=== PATIENT | male | born 1965 | race Caucasian/White ===

== ENCOUNTER 2016-09-27 20:37 | Emergency (ER) | payer SELFPAY ==
[~2016-09-27] VITALS: Ht 170.2 cm; Wt 77.1 kg
[~2016-09-27 20:37] MED LIST: FAMO20TA5 PO
[2016-09-27 21:40] VITALS: BP 111/63
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
[2016-09-27] MEDS ORDERED: MORPHINE SULFATE 10 MG/ML VIAL. IM ONE (22:00)
== END 2016-09-27 22:12 | disposition home or self-care (01) ==
LOC: ER 21:20
DX: S00.83XA Contusion of other part of head, initial encounter (principal); R10.84 Generalized abdominal pain; G89.29 Other chronic pain; F43.10 Post-traumatic stress disorder, unspecified; I25.2 Old myocardial infarction; F11.20 Opioid dependence, uncomplicated; M19.90 Unspecified osteoarthritis, unspecified site; Z90.49 Acquired absence of other specified parts of digestive tract; Z86.19 Personal history of other infectious and parasitic diseases; Z98.890 Other specified postprocedural states; F17.200 Nicotine dependence, unspecified, uncomplicated; Z88.8 Allergy status to other drugs, medicaments and biological substances; Y08.89XA Assault by other specified means, initial encounter; Y93.89 Activity, other specified; Y99.8 Other external cause status; Y92.89 Other specified places as the place of occurrence of the external cause
CPT/HCPCS: 96372; 99283; J2270

== ENCOUNTER 2016-10-16 09:12 | Observation (INO) | payer SELFPAY ==
[~2016-10-16] VITALS: Ht 172.7 cm; Wt 69.9 kg
[2016-10-16] MEDS ORDERED: IPRATRPIUM/ALBUTEROL 0.5/2.5MG 3 ML NEBU. NEB ONE (09:30)
--- NOTE | 2016-10-16 09:54 | RAD ---
Chest, 2 views, 10/16/2016: History: Shortness of breath with palpitations The heart size is normal. A calcified granuloma is present in the right upper lobe. No pulmonary infiltrates are seen. There is no evidence of pleural fluid. Mild spurring is present in the spine. IMPRESSION: No acute cardiopulmonary abnormality is detected.
[2016-10-16 10:12] LABS: BASO # 0.1 x10^3/uL (0.0-0.2); BASO % 1 % (0-3); EOS % 2 % (0-3); HEMATOCRIT 44.6 % (39.0-53.0); HEMOGLOBIN 15.3 g/dL (13.0-17.5); LYMPH # 2.4 x10^3/uL (1.0-4.8); LYMPH % 26 % (24-48); MEAN CORPUSCULAR HEMOGLOBIN 30 pg (25-35); MEAN CORPUSCULAR HGB CONC 34 g/dL (31-37); MEAN CORPUSCULAR VOLUME 86 fL (79-100); MONO % 10 % (0-9); NEUT % 61 % (31-73); PLATELET COUNT 250 x10^3/uL (140-400); RED CELL DISTRIBUTION WIDTH 13.6 % (11.5-14.5); WHITE BLOOD COUNT 9.1 x10^3/uL (4.0-11.0)
--- NOTE | 2016-10-16 10:19 | EKG ---
[facility] [address] [place] [address] Test Date: 2016-10-16 Test Time: 10:16:19 Pat Name: PHILLIP HUMPHREYS Department: Room: Gender: M Certified Dialysis Technician: : 1965 Requested By: ALINE LOUISE Order Number: [id number] Reading MD: Measurements Intervals [place] Rate: 73 P: 29 NH: 132 QRS: 62 QRSD: 90 T: 54 QT: 420 QTc: 467 Interpretive Statements SINUS RHYTHM QRS(T) CONTOUR ABNORMALITY CONSIDER ANTEROSEPTAL MYOCARDIAL DAMAGE RI6.01 Unconfirmed report No previous ECG available for comparison
[2016-10-16 10:28] LABS: CREATININE 0.9 mg/dL (0.7-1.3); POTASSIUM 3.3 mmol/L (3.5-5.1)
[2016-10-16 10:33] LABS: ALBUMIN 4.2 g/dL (3.4-5.0); ALBUMIN/GLOBULIN RATIO 1.1 (1.0-1.7); TOTAL BILIRUBIN 0.9 mg/dL (0.2-1.0); TOTAL PROTEIN 8.2 g/dL (6.4-8.2)
[2016-10-16 10:44] LABS: CKMB INDEX 1.6 % (0-4); CKMB MASS 1.6 ng/mL (0.0-3.6)
[2016-10-16] MEDS ORDERED: LORAZEPAM 2 MG/ML VIAL IV ONE (11:15)
[2016-10-16] MEDS ORDERED: POTASSIUM CHLORIDE 20 MEQ TABLET.ER. PO ONE (13:45)
--- NOTE | 2016-10-16 14:07 | PHYS DOC ---
Past Medical History Past Medical History: Anxiety, Arthritis, COPD, Hepatitis, [place] Additional Past Medical Histor: chronic abdominal pain, PTSD Past Surgical History: Appendectomy, Tonsillectomy Additional Past Surgical Histo: UMBILICAL HERNIA Additional Information: 2 CIGS/DAY Alcohol Use: None Drug Use: Benzodiazepine, Methadone, Opiates Social History Narrative: "I'VE DONE EVERYTHING ON THE PLANET IN MY LIFE" Adult General Chief Complaint Chief Complaint: TREMORS HPI HPI Patient is a 50 year old male who presents with substernal chest pain. He states it was a sharp pain in his substernal area of his chest and did not radiate. He did state that he's off his methadone for the last month he's been trying different options for pain control/addiction control. He also states he has chronic abdominal pain. He states this pain his abdomen is no different than his normal pain. He also feels some shortness of breath and states he has COPD. He denies any diaphoresis or nausea associated with this pain. Review of Systems Review of Systems Constitutional: Denies fever or chills [] Eyes: Denies change in visual acuity, redness, or eye pain [] HENT: Denies nasal congestion or sore throat [] Respiratory: Denies cough or shortness of breath [] Cardiovascular: No additional information not addressed in HPI [] GI: Denies abdominal pain, nausea, vomiting, bloody stools or diarrhea [] : Denies dysuria or hematuria [] Musculoskeletal: Denies back pain or joint pain [] Integument: Denies rash or skin lesions [] Neurologic: Denies headache, focal weakness or sensory changes [] Endocrine: Denies polyuria or polydipsia [] Current Medications Current Medications Current Medications Medications (Trade) Dose Ordered Sig/[facility] Start Time Stop Time Status Last Admin Dose Admin Albuterol/ Ipratropium (Duoneb) 3 ml 1X ONCE 10/16/16 09:30 10/16/16 09:31 DC 10/16/16 09:56 3 ML Aspirin (Tiffanie Aspirin) 325 mg 1X ONCE 10/16/16 14:45 10/16/16 14:46 DC Lorazepam (Ativan) 1 mg 1X ONCE 10/16/16 11:15 10/16/16 11:16 DC 10/16/16 11:06 1 MG Ondansetron HCl (Zofran) 4 mg PRN Q8HRS PRN 10/16/16 14:45 10/17/16 14:44 Potassium Chloride (Klor-Con) 40 meq 1X ONCE 10/16/16 13:45 10/16/16 13:46 DC 10/16/16 14:22 40 MEQ Allergies Allergies Allergies Coded Allergies Type Severity Reaction Last Updated Verified diphenhydramine Allergy Intermediate 06/29/16 Yes ketorolac Allergy Intermediate 10/16/16 Yes Physical Exam Physical Exam Constitutional: Well developed, well nourished, no acute distress, non-toxic appearance. [] HENT: Normocephalic, atraumatic, bilateral external ears normal, oropharynx moist, no oral exudates, nose normal. [] Eyes: PERRLA, EOMI, conjunctiva normal, no discharge. [] Neck: Normal range of motion, no tenderness, supple, no stridor. [] Cardiovascular:Heart rate regular rhythm, no murmur [] Lungs & Thorax: Bilateral breath sounds clear to auscultation [] Abdomen: Bowel sounds normal, soft, no tenderness, no masses, no pulsatile masses. [] Skin: Warm, dry, no erythema, no rash. [] Back: No tenderness, no CVA tenderness. [] Extremities: No tenderness, no cyanosis, no clubbing, ROM intact, no edema. [] Neurologic: Alert and oriented X 3, normal motor function, normal sensory function, no focal deficits noted. [] Psychologic: Affect normal, judgement normal, mood normal. [] Current Patient Data Vital Signs Vital Signs Date Time Temp Pulse Resp B/P Pulse Ox O2 Delivery O2 Flow Rate FiO2 10/16/16 13:00 70 22 115/76 97 Room Air 10/16/16 09:28 98.4 98.4 Lab Values Laboratory Tests Test 10/16/16 09:51 White Blood Count 9.1x10^3/uL (4.0-11.0) Red Blood Count 5.20x10^6/uL (4.30-5.70) Hemoglobin 15.3g/dL (13.0-17.5) Hematocrit 44.6% (39.0-53.0) Mean Corpuscular Volume 86fL (79-100) Mean Corpuscular Hemoglobin 30pg (25-35) Mean Corpuscular Hemoglobin Concent 34g/dL (31-37) Red Cell Distribution Width 13.6% (11.5-14.5) Platelet Count 250x10^3/uL (140-400) Neutrophils (%) (Auto) 61% (31-73) Lymphocytes (%) (Auto) 26% (24-48) Monocytes (%) (Auto) 10% (0-9) H Eosinophils (%) (Auto) 2% (0-3) Basophils (%) (Auto) 1% (0-3) Neutrophils # (Auto) 5.6x10^3uL (1.8-7.7) Lymphocytes # (Auto) 2.4x10^3/uL (1.0-4.8) Monocytes # (Auto) 0.9x10^3/uL (0.0-1.1) Eosinophils # (Auto) 0.2x10^3/uL (0.0-0.7) Basophils # (Auto) 0.1x10^3/uL (0.0-0.2) Sodium Level 143mmol/L (136-145) Potassium Level 3.3mmol/L (3.5-5.1) L Chloride Level 104mmol/L (98-107) Carbon Dioxide Level 23mmol/L (21-32) Anion Gap 16 (6-14) H Blood Urea Nitrogen 6mg/dL (8-26) L Creatinine 0.9mg/dL (0.7-1.3) Estimated GFR (Cockcroft-Gault) 89.0 BUN/Creatinine Ratio 7 (6-20) Glucose Level 97mg/dL (70-99) Calcium Level 10.0mg/dL (8.5-10.1) Total Bilirubin 0.9mg/dL (0.2-1.0) Aspartate Amino Transferase (AST) 17U/L (15-37) Alanine Aminotransferase (ALT) 17U/L (16-63) Alkaline Phosphatase 61U/L (46-116) Creatine Kinase 100U/L (39-308) Creatine Kinase MB (Mass) 1.6ng/mL (0.0-3.6) Creatine Kinase MB Relative Index 1.6% (0-4) Troponin I Quantitative < 0.017ng/mL (0.000-0.055) BI-Yxk-S-Type Natriuretic Peptide 36pg/mL (0-124) Total Protein 8.2g/dL (6.4-8.2) Albumin 4.2g/dL (3.4-5.0) Albumin/Globulin Ratio 1.1 (1.0-1.7) Lipase 243U/L (73-393) Laboratory Tests 10/16/16 09:51 Laboratory Tests 10/16/16 09:51 EKG EKG EKG shows normal sinus rhythm with rate [address] elevations or T- wave inversions, normal axis, as interpreted by me. Radiology/Procedures Radiology/Procedures [facility] [address] [place] [address] IMAGING REPORT Signed PATIENT: PHILLIP HUMPHREYS ACCOUNT: [id number] : 1965 LOCATION: ER AGE: 50 SEX: M EXAM STATUS: PRE ER ORD. PHYSICIAN: ALINE LOUISE MD REASON: soa PROCEDURE: CHEST PA & LATERAL Chest, 2 views, 10/16/2016: History: Shortness of breath with palpitations The heart size is normal. A calcified granuloma is present in the right upper lobe. No pulmonary infiltrates are seen. There is no evidence of pleural fluid. Mild spurring is present in the spine. IMPRESSION: No acute cardiopulmonary abnormality is detected. DICTATED and SIGNED BY: MAHI BESS MD DATE: 10/16/16 0950 CC: ALINE LOUISE MD; NO PCP ~ Impressions: Chest pain Drug abuse History of COPD Hypokalemia Course & Med Decision Making Course & Med Decision Making Pertinent Labs and Imaging studies reviewed. (See chart for details) She presented with chest pain that has now resolved. He received aspirin, no associated breathing treatment. The PAC team was called to assess his heroin abuse history, and current homelessness. He's being admitted for chest pain rule out. He is agreeable plans in stable condition this time. His potassium was replaced with oral medication. Dragon Disclaimer Dragon Disclaimer This electronic medical record was generated, in whole or in part, using a voice recognition dictation system. Departure Departure Impression: Primary Impression: Chest pain Disposition: ADMITTED INPATIENT Admitting Physician: Viky Herrera Condition: STABLE Referrals: UNKNOWN PCP NAME (PCP) ALINE LOUISE MD Oct 16, 2016 14:07
[2016-10-16] MEDS ORDERED: ASPIRIN 325 MG TABLET PO ONE (14:45)
[2016-10-16] MEDS ORDERED: ONDANSETRON PF 4 MG/2 ML VIAL. IV PRN ×2 (14:45→16:04)
--- NOTE | 2016-10-16 15:18 | PDOC2 ---
JOHN ADAMS [employer]RAVING PLATE [employer]KER 10/16/16 1518: CARDIAC CONSULT DATE OF CONSULT Date of Consult DATE: 10/16/16 TIME: 15:16 REASON FOR CONSULT Reason for Consult: Chest Pain REFERRING PHYSICIAN Referring Physician: Dr. Lewis SOURCE Source: Chart review, Patient HISTORY OF PRESENT ILLNESS HISTORY OF PRESENT ILLNESS This is a 50 yo male who presented with complaints of shortness of breath associated with chest pressure and diaphoresis. Patient reports symptoms began early this morning. Denies any dizziness, orthopnea, LE edema, or n/v. Symptoms resolved upon arrival to ED- "just went away". Patient additionally reports that sister witnessed him having seizure. Ran out of Xanax, Restoril, and oxycodone "without buffer" a couple of days ago. Apparently has prescription refills but not due for a couple more days, which is "why I'm here". Was on Methadone but reports he quit that on his own recently without being tapered off. Recent IV drug use; a couple of days ago. Uses marijuama daily and meth occasionally. Quit heroin approximately two years ago. Chronic abdominal pain. Has been staying in hotel for the last couple of months. Symptoms presently resolved. PAT team consulted. PAST MEDICAL HISTORY Cardiovascular: HTN Pulmonary: Asthma, COPD CENTRAL NERVOUS SYSTEM: Seizure GI: GERD Heme/Onc: No pertinent hx Hepatobiliary: Hep A/B/C (C) Psych: Anxiety, Depression Musculoskeletal: Osteoarthritis Rheumatologic: No pertinent hx Infectious disease: No pertinent hx ENT: No pertinent hx Renal/: No pertinent hx Endocrine: No pertinent hx Dermatology: No pertinent hx PAST SURGICAL HISTORY Past Surgical History: Appendectomy, Hernia Repair, Tonsillectomy FAMILY HISTORY Family History: Other (non-contributory ) SOCIAL HISTORY Smoke: <1 pack per day ALCOHOL: none Drugs: Marijuana, Crystal meth Lives: Homeless Domestic Violence: Neg CURRENT MEDICATIONS CURRENT MEDICATIONS Current Medications Medications (Trade) Dose Ordered Sig/Minna Route PRN Reason Start Time Stop Time Status Last Admin Dose Admin Albuterol/ Ipratropium (Duoneb) 3 ml 1X ONCE NEB 10/16/16 09:30 10/16/16 09:31 DC 10/16/16 09:56 Lorazepam (Ativan) 1 mg 1X ONCE IV 10/16/16 11:15 10/16/16 11:16 DC 10/16/16 11:06 Potassium Chloride (Klor-Con) 40 meq 1X ONCE PO 10/16/16 13:45 10/16/16 13:46 DC 10/16/16 14:22 ALLERGIES ALLERGIES: Coded Allergies: diphenhydramine (Verified Allergy, Intermediate, 06/29/16) ketorolac (Verified Allergy, Intermediate, 10/16/16) restless leg ROS Review of System 14 point ROS conducted with pertinent positives noted above in HPI. PHYSICAL EXAM General: Alert, Oriented X3, Cooperative, No acute distress HEENT: Atraumatic, Mucous membr. moist/pink Lungs: Clear to auscultation Heart: Regular rate, Normal S1, Normal S2, Other (2/6 systolic murmur ) Abdomen: Soft, Other (mild diffuse abdominal tenderness) Extremities: No edema, Normal pulses Skin: No breakdown, No significant lesion Neuro: Normal speech, Sensation intact Psych/Mental Status: Mental status NL, Mood NL MUSCULOSKELETAL: Osteoarthritic changes both hands VITALS VITALS Vital Signs Date Time Temp Pulse Resp B/P Pulse Ox O2 Delivery O2 Flow Rate FiO2 10/16/16 13:32 66 39 110/67 98 10/16/16 13:00 Room Air 10/16/16 09:28 98.4 98.4 LABS Lab: Laboratory Tests Test 10/16/16 09:51 White Blood Count 9.1x10^3/uL (4.0-11.0) Red Blood Count 5.20x10^6/uL (4.30-5.70) Hemoglobin 15.3g/dL (13.0-17.5) Hematocrit 44.6% (39.0-53.0) Mean Corpuscular Volume 86fL (79-100) Mean Corpuscular Hemoglobin 30pg (25-35) Mean Corpuscular Hemoglobin Concent 34g/dL (31-37) Red Cell Distribution Width 13.6% (11.5-14.5) Platelet Count 250x10^3/uL (140-400) Neutrophils (%) (Auto) 61% (31-73) Lymphocytes (%) (Auto) 26% (24-48) Monocytes (%) (Auto) 10% (0-9) Eosinophils (%) (Auto) 2% (0-3) Basophils (%) (Auto) 1% (0-3) Neutrophils # (Auto) 5.6x10^3uL (1.8-7.7) Lymphocytes # (Auto) 2.4x10^3/uL (1.0-4.8) Monocytes # (Auto) 0.9x10^3/uL (0.0-1.1) Eosinophils # (Auto) 0.2x10^3/uL (0.0-0.7) Basophils # (Auto) 0.1x10^3/uL (0.0-0.2) Sodium Level 143mmol/L (136-145) Potassium Level 3.3mmol/L (3.5-5.1) Chloride Level 104mmol/L (98-107) Carbon Dioxide Level 23mmol/L (21-32) Anion Gap 16 (6-14) Blood Urea Nitrogen 6mg/dL (8-26) Creatinine 0.9mg/dL (0.7-1.3) Estimated GFR (Cockcroft-Gault) 89.0 BUN/Creatinine Ratio 7 (6-20) Glucose Level 97mg/dL (70-99) Calcium Level 10.0mg/dL (8.5-10.1) Total Bilirubin 0.9mg/dL (0.2-1.0) Aspartate Amino Transf (AST/SGOT) 17U/L (15-37) Alanine Aminotransferase (ALT/SGPT) 17U/L (16-63) Alkaline Phosphatase 61U/L (46-116) Creatine Kinase 100U/L (39-308) Creatine Kinase MB (Mass) 1.6ng/mL (0.0-3.6) Creatine Kinase MB Relative Index 1.6% (0-4) Troponin I Quantitative < 0.017ng/mL (0.000-0.055) XI-Uak-O-Type Natriuretic Peptide 36pg/mL (0-124) Total Protein 8.2g/dL (6.4-8.2) Albumin 4.2g/dL (3.4-5.0) Albumin/Globulin Ratio 1.1 (1.0-1.7) Lipase 243U/L (73-393) ASSESSMENT/PLAN ASSESSMENT/PLAN 1. Chest pain, atypical initial trop negative- continue with series EKG without significant acute changes. Doubt ACS ASA. check lipids recent meth use. check UDS consider obtaining echo in am to r/o WMA 2. Hypokalemia replaced. Monitor lytes. check Mg 3. HTN controlled 4. Hepatitis C 5. chronic pain out of pain medications 6. polysubstance abuse admits to henry and meth use check UDS Problems: CRISSY FLOYD MD 10/16/162116: CARDIAC CONSULT ALLERGIES ALLERGIES: Coded Allergies: diphenhydramine (Verified Allergy, Intermediate, 06/29/16) ketorolac (Verified Allergy, Intermediate, 10/16/16) restless leg ASSESSMENT/PLAN ASSESSMENT/PLAN Patient seen and examined. Agree with CARPET INSPECTOR FINISHED's assessment and plan. CP atypical. DE ruled out. We will obtain 2D echo to rule out any wall motion abnormalities. K replaced. Continue current medical regimen. Thank you for your consultation. Problems: JOHN ADAMS APRN Oct 16, 2016 15:18 CRISSY FLOYD MD Oct 16, 2016 21:17
[2016-10-16 16:10] LABS: BARBITURATES NEG (NEG); BENZODIAZEPINES POS (NEG); CANNABINOIDS POS (NEG); COCAINE NEG (NEG); METHADONE NEG (NEG); OPIATES NEG (NEG); PHENCYCLIDINE NEG (NEG)
[2016-10-16 16:12] LABS: BILIRUBIN,URINE NEGATIVE (NEG); ETHANOL, URINE NEG (NEG); GLUCOSE,URINE NEGATIVE (NEG); NITRITE,URINE NEGATIVE (NEG); PROTEIN,URINE NEGATIVE (NEG-TRACE); UROBILINOGEN,URINE 0.2 mg/dL (0.2 mg/dL)
[2016-10-16] MEDS ORDERED: ACETAMINOPHEN 500 MG TABLET PO PRN (16:15)
[2016-10-16 16:25] LABS: BACTERIA,URINE 0 /HPF (0-FEW); RBC,URINE 0 /HPF (0-2); SQUAMOUS EPITHELIAL CELL,UR OCC /LPF; WBC,URINE OCC /HPF (0-4)
[2016-10-16 16:27] VITALS: BP 97/62
--- NOTE | 2016-10-16 16:29 | PDOC1 ---
History and Physical Date of Admission Date of Admission DATE: 10/16/16 TIME: 16:24 Identification/Chief Complaint Chief Complaint cp from anxiety Source Source: Caregiver, Chart review, Patient History of Present Illness History of Present Illness 50 y.o male, homeless, admitted for CP r.o ACS,. DOes have hx CO he claims yrs ago but no stents, cp midsternal, described as chest tightness, no diaphoresis, maybe SOA. He claims from anxiety, He used to take methadone 95 mgs a day and quit cold turkey a month ago bec he claims it was making him sick (unclear reasons0, BUt now tells me he requests xanax, oxycodone, klonopin and restoril,. EKg ok, labs ok, pt admitted for r/o ACS Past Medical History Cardiovascular: HTN Pulmonary: Asthma, COPD CENTRAL NERVOUS SYSTEM: Seizure GI: GERD Heme/Onc: No pertinent hx Hepatobiliary: Hep A/B/C (C) Psych: Anxiety, Depression Musculoskeletal: Osteoarthritis Rheumatologic: No pertinent hx Infectious disease: No pertinent hx ENT: No pertinent hx Renal/: No pertinent hx Endocrine: No pertinent hx Dermatology: No pertinent hx Past Surgical History Past Surgical History: Appendectomy, Hernia Repair, Tonsillectomy Family History Family History: Other (non-contributory ) Social History Smoke: <1 pack per day ALCOHOL: occassional Drugs: Marijuana, Crystal meth Current Problem List Problem List Problems Medical Problems: (1) Chest pain Status: Acute Problems: Current Medications Current Medications Current Medications Albuterol/ Ipratropium (Duoneb) 3 ml 1X ONCE NEB Last administered on 09:56; Start 10/16/16 at 09:30; Stop 10/16/16 at 09:31; Status DC Lorazepam (Ativan) 1 mg 1X ONCE IV Last administered on 10/16/16 11:06; Start 10/16/16 at 11:15; Stop 10/16/16 at 11:16; Status DC Potassium Chloride (Klor-Con) 40 meq 1X ONCE PO Last administered on 14:22; Start 10/16/16 at 13:45; Stop 10/16/16 at 13:46; Status DC Aspirin (Tiffanie Aspirin) 325 mg 1X ONCE PO Last administered on 10/16/16 15:28 ; Start 10/16/16 at 14:45; Stop 10/16/16 at 14:46; Status DC Ondansetron HCl (Zofran) 4 mg PRN Q8HRS PRN IV NAUSEA/VOMITING; Start 10/16/16 at 14:45; Stop 10/16/16 at 16:06; Status DC Ondansetron HCl (Zofran) 4 mg PRN Q6HRS PRN IV NAUSEA/VOMITING; Start 10/16/16 at 16:04 Acetaminophen (Tylenol) 500 mg PRN Q6HRS PRN PO MILD PAIN / TEMP; Start at 16:15 Famotidine (Pepcid) 20 mg BID PO ; Start 10/16/16 at 21:00 Active Scripts Active Famotidine 20 Mg Tablet 20 Mg PO BID Allergies Allergies: Coded Allergies: diphenhydramine (Verified Allergy, Intermediate, 06/29/16) ketorolac (Verified Allergy, Intermediate, 10/16/16) restless leg ROS General: No: Appetite, Chills, Fatigue, Malaise, Night Sweats, Other PSYCHOLOGICAL ROS: YES: Anxiety Eyes: No Blurry vision, No Decreased vision, No Double vision, No Dry eyes, No Excessive tearing, No Eye Pain, No Itchy Eyes, No Loss of vision, No Other, No Photophobia, No Scotomata, No Uses contacts, No Uses glasses HEENT: No: Epistaxis, Heacaches, Hearing change, Nasal congestion, Nasal discharge, Oral lesions, Other, Sinus pain, Sneezing, Snoring, Sore Throat, Tinnitus, Vertigo, Visual Changes, Vocal changes ALLERGY AND IMMUNOLOGY: No: Hives, Insect Bite Sensitivity, Itchy/Watery Eyes, Nasal Congestion, Other, Post Nasal Drip, Seasonal Allergies Hematological and Lymphatic: No: Bleeding Problems, Blood Clots, Blood Transfusions, Brusing, Night Sweats, Other, Pallor, Swollen Lymph Nodes ENDOCRINE: No: Breast Changes, Galactorrhea, Hair Pattern Changes, Hot Flashes , Malaise/lethargy, Mood Swings, Other, Palpitations, Polydipsia/polyuria, Skin Changes, Temperature Intolerance, Unexpected Weight Changes Breast: No New/Changing Breast Lumps, No Nipple changes, No Nipple discharge, No Other Respiratory: YES: Shortness of breath Cardiovascular: yes Chest Pain Gastrointestinal: No Abdominal Pain, No Constipation, No Diarrhea, No Hematochezia, No Melena, No Nausea, No Other, No Vomiting Genitourinary: No , No , No , No , No , No , No , No Discharge, No Dysuria, No Flank Pain, No Frequency, No Hematuria, No Incontinence, No Other, No Pain, No Retention, No Urgency Musculoskeletal: No Gait Disturbance, No Joint Pain, No Joint Stiffness, No Joint Swelling, No Muscle Pain, No Muscular Weakness, No Other, No Pain In:, No Swelling In: Neurological: No Behavorial Changes, No Bowel/Bladder ControlChng, No Confusion , No Dizziness, No Gait Disturbance, No Headaches, No Impaired Coord/balance, No Memory Loss, No Numbness/Tingling, No Other, No Seizures, No Speech Problems , No Tremors, No Visual Changes, No Weakness Skin: No Acne, No Dry Skin, No Eczema, No Hair Changes, No Lumps, No Mole Changes, No Mottling, No Nail Changes, No Other, No Pruritus, No Rash, No Skin Lesion Changes Physical Exam General: Alert, Oriented X3, Cooperative, No acute distress HEENT: Atraumatic, PERRLA, EOMI Lungs: Clear to auscultation, Normal air movement Heart: S1S2, RRR, no thrills, no rubs, no gallops, no murmurs Breasts: Normal, Rt breast nml w/o mass, Lt breast nml w/o mass, Nipples normal Abdomen: Normal bowel sounds, Soft, No tenderness, No hepatosplenomegaly, No masses Male Genitals Exam: normal genitalia, normal prostate PELVIC: Nml ext vulva Extremities: No clubbing, No cyanosis, No edema, Normal pulses, No tenderness/ swelling Skin: No rashes, No breakdown, No significant lesion Neuro: Normal gait, Normal speech, Strength at 5/5 X4 ext, Normal tone, Sensation intact, Cranial nerves 3-12 NL, Reflexes 2+ Psych/Mental Status: Mental status NL, Mood NL Vitals Vitals Vital Signs Date Time Temp Pulse Resp B/P Pulse Ox O2 Delivery O2 Flow Rate FiO2 10/16/16 13:32 66 39 110/67 98 10/16/16 13:00 Room Air 10/16/16 09:28 98.4 98.4 Labs Labs Laboratory Tests Test 10/16/16 09:51 10/16/16 15:45 White Blood Count 9.1x10^3/uL (4.0-11.0) Red Blood Count 5.20x10^6/uL (4.30-5.70) Hemoglobin 15.3g/dL (13.0-17.5) Hematocrit 44.6% (39.0-53.0) Mean Corpuscular Volume 86fL (79-100) Mean Corpuscular Hemoglobin 30pg (25-35) Mean Corpuscular Hemoglobin Concent 34g/dL (31-37) Red Cell Distribution Width 13.6% (11.5-14.5) Platelet Count 250x10^3/uL (140-400) Neutrophils (%) (Auto) 61% (31-73) Lymphocytes (%) (Auto) 26% (24-48) Monocytes (%) (Auto) 10% (0-9) Eosinophils (%) (Auto) 2% (0-3) Basophils (%) (Auto) 1% (0-3) Neutrophils # (Auto) 5.6x10^3uL (1.8-7.7) Lymphocytes # (Auto) 2.4x10^3/uL (1.0-4.8) Monocytes # (Auto) 0.9x10^3/uL (0.0-1.1) Eosinophils # (Auto) 0.2x10^3/uL (0.0-0.7) Basophils # (Auto) 0.1x10^3/uL (0.0-0.2) Sodium Level 143mmol/L (136-145) Potassium Level 3.3mmol/L (3.5-5.1) Chloride Level 104mmol/L (98-107) Carbon Dioxide Level 23mmol/L (21-32) Anion Gap 16 (6-14) Blood Urea Nitrogen 6mg/dL (8-26) Creatinine 0.9mg/dL (0.7-1.3) Estimated GFR (Cockcroft-Gault) 89.0 BUN/Creatinine Ratio 7 (6-20) Glucose Level 97mg/dL (70-99) Calcium Level 10.0mg/dL (8.5-10.1) Total Bilirubin 0.9mg/dL (0.2-1.0) Aspartate Amino Transf (AST/SGOT) 17U/L (15-37) Alanine Aminotransferase (ALT/SGPT) 17U/L (16-63) Alkaline Phosphatase 61U/L (46-116) Creatine Kinase 100U/L (39-308) Creatine Kinase MB (Mass) 1.6ng/mL (0.0-3.6) Creatine Kinase MB Relative Index 1.6% (0-4) Troponin I Quantitative < 0.017ng/mL (0.000-0.055) NK-Wqo-S-Type Natriuretic Peptide 36pg/mL (0-124) Total Protein 8.2g/dL (6.4-8.2) Albumin 4.2g/dL (3.4-5.0) Albumin/Globulin Ratio 1.1 (1.0-1.7) Lipase 243U/L (73-393) Urine Color Yellow Urine Clarity Clear Urine pH 6.0 Urine Specific [place] 1.010 Urine Protein Negativemg/dL (NEG-TRACE) Urine Glucose (UA) Negativemg/dL (NEG) Urine Ketones (Stick) 40mg/dL (NEG) Urine Blood Negative (NEG) Urine Nitrite Negative (NEG) Urine Bilirubin Negative (NEG) Urine Urobilinogen Dipstick 0.2mg/dL (0.2 mg/dL) Urine Leukocyte Esterase Negative (NEG) Urine RBC 0/HPF (0-2) Urine WBC Occ/HPF (0-4) Urine Squamous Epithelial Cells Occ/LPF Urine Bacteria 0/HPF (0-FEW) Urine Mucus Mod/LPF Urine Opiates Screen Neg (NEG) Urine Methadone Screen Neg (NEG) Urine Barbiturates Neg (NEG) Urine Phencyclidine Screen Neg (NEG) Urine Amphetamine/Methamphetamine Pos (NEG) Urine Benzodiazepines Screen Pos (NEG) Urine Cocaine Screen Neg (NEG) Urine Cannabinoids Screen Pos (NEG) Urine Ethyl Alcohol Neg (NEG) Laboratory Tests Test 10/16/16 09:51 10/16/16 15:45 White Blood Count 9.1x10^3/uL (4.0-11.0) Red Blood Count 5.20x10^6/uL (4.30-5.70) Hemoglobin 15.3g/dL (13.0-17.5) Hematocrit 44.6% (39.0-53.0) Mean Corpuscular Volume 86fL (79-100) Mean Corpuscular Hemoglobin 30pg (25-35) Mean Corpuscular Hemoglobin Concent 34g/dL (31-37) Red Cell Distribution Width 13.6% (11.5-14.5) Platelet Count 250x10^3/uL (140-400) Neutrophils (%) (Auto) 61% (31-73) Lymphocytes (%) (Auto) 26% (24-48) Monocytes (%) (Auto) 10% (0-9) Eosinophils (%) (Auto) 2% (0-3) Basophils (%) (Auto) 1% (0-3) Neutrophils # (Auto) 5.6x10^3uL (1.8-7.7) Lymphocytes # (Auto) 2.4x10^3/uL (1.0-4.8) Monocytes # (Auto) 0.9x10^3/uL (0.0-1.1) Eosinophils # (Auto) 0.2x10^3/uL (0.0-0.7) Basophils # (Auto) 0.1x10^3/uL (0.0-0.2) Sodium Level 143mmol/L (136-145) Potassium Level 3.3mmol/L (3.5-5.1) Chloride Level 104mmol/L (98-107) Carbon Dioxide Level 23mmol/L (21-32) Anion Gap 16 (6-14) Blood Urea Nitrogen 6mg/dL (8-26) Creatinine 0.9mg/dL (0.7-1.3) Estimated GFR (Cockcroft-Gault) 89.0 BUN/Creatinine Ratio 7 (6-20) Glucose Level 97mg/dL (70-99) Calcium Level 10.0mg/dL (8.5-10.1) Total Bilirubin 0.9mg/dL (0.2-1.0) Aspartate Amino Transf (AST/SGOT) 17U/L (15-37) Alanine Aminotransferase (ALT/SGPT) 17U/L (16-63) Alkaline Phosphatase 61U/L (46-116) Creatine Kinase 100U/L (39-308) Creatine Kinase MB (Mass) 1.6ng/mL (0.0-3.6) Creatine Kinase MB Relative Index 1.6% (0-4) Troponin I Quantitative < 0.017ng/mL (0.000-0.055) EF-Cuz-K-Type Natriuretic Peptide 36pg/mL (0-124) Total Protein 8.2g/dL (6.4-8.2) Albumin 4.2g/dL (3.4-5.0) Albumin/Globulin Ratio 1.1 (1.0-1.7) Lipase 243U/L (73-393) Urine Color Yellow Urine Clarity Clear Urine pH 6.0 Urine Specific [place] 1.010 Urine Protein Negativemg/dL (NEG-TRACE) Urine Glucose (UA) Negativemg/dL (NEG) Urine Ketones (Stick) 40mg/dL (NEG) Urine Blood Negative (NEG) Urine Nitrite Negative (NEG) Urine Bilirubin Negative (NEG) Urine Urobilinogen Dipstick 0.2mg/dL (0.2 mg/dL) Urine Leukocyte Esterase Negative (NEG) Urine RBC 0/HPF (0-2) Urine WBC Occ/HPF (0-4) Urine Squamous Epithelial Cells Occ/LPF Urine Bacteria 0/HPF (0-FEW) Urine Mucus Mod/LPF Urine Opiates Screen Neg (NEG) Urine Methadone Screen Neg (NEG) Urine Barbiturates Neg (NEG) Urine Phencyclidine Screen Neg (NEG) Urine Amphetamine/Methamphetamine Pos (NEG) Urine Benzodiazepines Screen Pos (NEG) Urine Cocaine Screen Neg (NEG) Urine Cannabinoids Screen Pos (NEG) Urine Ethyl Alcohol Neg (NEG) VTE Prophylaxis Ordered VTE Prophylaxis Devices: Yes VTE Pharmacological Prophylaxi: Yes Assessment/Plan Assessment/Plan 1. CP in an adults at rEST 2. Hx CO no stents 3. HOmeless 4. Hx methadone use in methadone clinic PLAN: Cycle [facility] cards [facility] methadone withdrawal Sw for homeless fdc OBS MARCUS MAYNARD MD Oct 16, 2016 16:29
[2016-10-16] MEDS ORDERED: NICOTINE 21MG PATCH. TD PRN (16:30)
[2016-10-16] MEDS ORDERED: TEMAZEPAM 7.5 MG CAPSULE PO PRN (16:30)
[2016-10-16] MEDS: OXYCODONE IR 5 MG TABLET. PO PRN (17:28)
[2016-10-16] MEDS: ALPRAZOLAM 1 MG TABLET PO PRN (17:28)
[2016-10-16 19:00] VITALS: BP 90/45
[2016-10-16] MEDS: CLONAZEPAM 1 MG TABLET PO PRN (20:54)
[2016-10-16] MEDS: FAMOTIDINE 20 MG TABLET. PO SCH (20:55)
[2016-10-16 23:09] VITALS: BP 93/52
[2016-10-17 03:00] VITALS: BP 81/46
[2016-10-17 07:07] VITALS: BP 97/59
[2016-10-17] MEDS: ALPRAZOLAM 1 MG TABLET PO PRN ×2 (08:31→16:40)
[2016-10-17] MEDS: FAMOTIDINE 20 MG TABLET. PO SCH (08:31)
[2016-10-17] MEDS: OXYCODONE IR 5 MG TABLET. PO PRN ×2 (08:32→14:50)
[2016-10-17 09:54] LABS: BASO # 0.1 x10^3/uL (0.0-0.2); BASO % 1 % (0-3); EOS % 4 % (0-3); HEMATOCRIT 43.4 % (39.0-53.0); HEMOGLOBIN 14.5 g/dL (13.0-17.5); LYMPH # 2.2 x10^3/uL (1.0-4.8); LYMPH % 27 % (24-48); MEAN CORPUSCULAR HEMOGLOBIN 29 pg (25-35); MEAN CORPUSCULAR HGB CONC 34 g/dL (31-37); MEAN CORPUSCULAR VOLUME 87 fL (79-100); MONO % 8 % (0-9); NEUT % 61 % (31-73); PLATELET COUNT 235 x10^3/uL (140-400); RED BLOOD COUNT 4.97 x10^6/uL (4.30-5.70); RED CELL DISTRIBUTION WIDTH 13.5 % (11.5-14.5); WHITE BLOOD COUNT 8.2 x10^3/uL (4.0-11.0)
[2016-10-17 10:19] LABS: CHOLESTEROL/HDL RATIO 2.5
[2016-10-17 10:56] VITALS: BP 95/56
[2016-10-17] MEDS ORDERED: ALPR1TAB2 PO (12:14)
[2016-10-17] MEDS ORDERED: TEMA7.5C2 PO (12:14)
[2016-10-17] MEDS ORDERED: OXYC10SY PO (12:14)
[2016-10-17] MEDS ORDERED: CLON1TAB PO (12:14)
--- NOTE | 2016-10-17 12:20 | PDOC3 ---
Discharge Summary Visit Information Date of Admission: Oct 16, 2016 Date of Discharge: Oct 17, 2016 Admitting Diagnosis Comment: 1. CP in an adults at rEST 2. Hx [place] no stents 3. HOmeless 4. Hx methadone use in methadone clinic Final Diagnosis Problems Medical Problems: (1) Chest pain Status: Acute Brief Hospital Course Allergies Allergies Coded Allergies Type Severity Reaction Last Updated Verified diphenhydramine Allergy Intermediate 06/29/16 Yes ketorolac Allergy Intermediate 10/16/16 Yes Vital Signs Vital Signs Date Time Temp Pulse Resp B/P Pulse Ox O2 Delivery O2 Flow Rate FiO2 10/17/16 10:56 97.9 62 18 95/56 97 Room Air 97.9 Lab Results Laboratory Tests Test 10/16/16 09:51 10/16/16 15:45 10/16/16 20:30 10/17/16 09:05 White Blood Count 9.1x10^3/uL (4.0-11.0) 8.2x10^3/uL (4.0-11.0) Red Blood Count 5.20x10^6/uL (4.30-5.70) 4.97x10^6/uL (4.30-5.70) Hemoglobin 15.3g/dL (13.0-17.5) 14.5g/dL (13.0-17.5) Hematocrit 44.6% (39.0-53.0) 43.4% (39.0-53.0) Mean Corpuscular Volume 86fL (79-100) 87fL (79-100) Mean Corpuscular Hemoglobin 30pg (25-35) 29pg (25-35) Mean Corpuscular Hemoglobin Concent 34g/dL (31-37) 34g/dL (31-37) Red Cell Distribution Width 13.6% (11.5-14.5) 13.5% (11.5-14.5) Platelet Count 250x10^3/uL (140-400) 235x10^3/uL (140-400) Neutrophils (%) (Auto) 61% (31-73) 61% (31-73) Lymphocytes (%) (Auto) 26% (24-48) 27% (24-48) Monocytes (%) (Auto) 10% (0-9) 8% (0-9) Eosinophils (%) (Auto) 2% (0-3) 4% (0-3) Basophils (%) (Auto) 1% (0-3) 1% (0-3) Neutrophils # (Auto) 5.6x10^3uL (1.8-7.7) 5.0x10^3uL (1.8-7.7) Lymphocytes # (Auto) 2.4x10^3/uL (1.0-4.8) 2.2x10^3/uL (1.0-4.8) Monocytes # (Auto) 0.9x10^3/uL (0.0-1.1) 0.6x10^3/uL (0.0-1.1) Eosinophils # (Auto) 0.2x10^3/uL (0.0-0.7) 0.3x10^3/uL (0.0-0.7) Basophils # (Auto) 0.1x10^3/uL (0.0-0.2) 0.1x10^3/uL (0.0-0.2) Sodium Level 143mmol/L (136-145) Potassium Level 3.3mmol/L (3.5-5.1) Chloride Level 104mmol/L (98-107) Carbon Dioxide Level 23mmol/L (21-32) Anion Gap 16 (6-14) Blood Urea Nitrogen 6mg/dL (8-26) Creatinine 0.9mg/dL (0.7-1.3) Estimated GFR (Cockcroft-Gault) 89.0 BUN/Creatinine Ratio 7 (6-20) Glucose Level 97mg/dL (70-99) Calcium Level 10.0mg/dL (8.5-10.1) Total Bilirubin 0.9mg/dL (0.2-1.0) Aspartate Amino Transf (AST/SGOT) 17U/L (15-37) Alanine Aminotransferase (ALT/SGPT) 17U/L (16-63) Alkaline Phosphatase 61U/L (46-116) Creatine Kinase 100U/L (39-308) Creatine Kinase MB (Mass) 1.6ng/mL (0.0-3.6) Creatine Kinase MB Relative Index 1.6% (0-4) Troponin I Quantitative < 0.017ng/mL (0.000-0.055) < 0.017ng/mL (0.000-0.055) < 0.017ng/mL (0.000-0.055) ZH-Suz-B-Type Natriuretic Peptide 36pg/mL (0-124) Total Protein 8.2g/dL (6.4-8.2) Albumin 4.2g/dL (3.4-5.0) Albumin/Globulin Ratio 1.1 (1.0-1.7) Lipase 243U/L (73-393) Urine Color Yellow Urine Clarity Clear Urine pH 6.0 Urine Specific [place] 1.010 Urine Protein Negativemg/dL (NEG-TRACE) Urine Glucose (UA) Negativemg/dL (NEG) Urine Ketones (Stick) 40mg/dL (NEG) Urine Blood Negative (NEG) Urine Nitrite Negative (NEG) Urine Bilirubin Negative (NEG) Urine Urobilinogen Dipstick 0.2mg/dL (0.2 mg/dL) Urine Leukocyte Esterase Negative (NEG) Urine RBC 0/HPF (0-2) Urine WBC Occ/HPF (0-4) Urine Squamous Epithelial Cells Occ/LPF Urine Bacteria 0/HPF (0-FEW) Urine Mucus Mod/LPF Urine Opiates Screen Neg (NEG) Urine Methadone Screen Neg (NEG) Urine Barbiturates Neg (NEG) Urine Phencyclidine Screen Neg (NEG) Urine Amphetamine/Methamphetamine Pos (NEG) Urine Benzodiazepines Screen Pos (NEG) Urine Cocaine Screen Neg (NEG) Urine Cannabinoids Screen Pos (NEG) Urine Ethyl Alcohol Neg (NEG) Triglycerides Level 59mg/dL (0-150) Cholesterol Level 112mg/dL (0-200) LDL Cholesterol, Calculated 55mg/dL (0-100) VLDL Cholesterol, Calculated 12mg/dL (0-40) HDL Cholesterol 45mg/dL (40-60) Cholesterol/HDL Ratio 2.5 Laboratory Tests Test 10/16/16 15:45 10/16/16 20:30 10/17/16 09:05 Urine Color Yellow Urine Clarity Clear Urine pH 6.0 Urine Specific [place] 1.010 Urine Protein Negativemg/dL (NEG-TRACE) Urine Glucose (UA) Negativemg/dL (NEG) Urine Ketones (Stick) 40mg/dL (NEG) Urine Blood Negative (NEG) Urine Nitrite Negative (NEG) Urine Bilirubin Negative (NEG) Urine Urobilinogen Dipstick 0.2mg/dL (0.2 mg/dL) Urine Leukocyte Esterase Negative (NEG) Urine RBC 0/HPF (0-2) Urine WBC Occ/HPF (0-4) Urine Squamous Epithelial Cells Occ/LPF Urine Bacteria 0/HPF (0-FEW) Urine Mucus Mod/LPF Urine Opiates Screen Neg (NEG) Urine Methadone Screen Neg (NEG) Urine Barbiturates Neg (NEG) Urine Phencyclidine Screen Neg (NEG) Urine Amphetamine/Methamphetamine Pos (NEG) Urine Benzodiazepines Screen Pos (NEG) Urine Cocaine Screen Neg (NEG) Urine Cannabinoids Screen Pos (NEG) Urine Ethyl Alcohol Neg (NEG) Troponin I Quantitative < 0.017ng/mL (0.000-0.055) < 0.017ng/mL (0.000-0.055) White Blood Count 8.2x10^3/uL (4.0-11.0) Red Blood Count 4.97x10^6/uL (4.30-5.70) Hemoglobin 14.5g/dL (13.0-17.5) Hematocrit 43.4% (39.0-53.0) Mean Corpuscular Volume 87fL (79-100) Mean Corpuscular Hemoglobin 29pg (25-35) Mean Corpuscular Hemoglobin Concent 34g/dL (31-37) Red Cell Distribution Width 13.5% (11.5-14.5) Platelet Count 235x10^3/uL (140-400) Neutrophils (%) (Auto) 61% (31-73) Lymphocytes (%) (Auto) 27% (24-48) Monocytes (%) (Auto) 8% (0-9) Eosinophils (%) (Auto) 4% (0-3) Basophils (%) (Auto) 1% (0-3) Neutrophils # (Auto) 5.0x10^3uL (1.8-7.7) Lymphocytes # (Auto) 2.2x10^3/uL (1.0-4.8) Monocytes # (Auto) 0.6x10^3/uL (0.0-1.1) Eosinophils # (Auto) 0.3x10^3/uL (0.0-0.7) Basophils # (Auto) 0.1x10^3/uL (0.0-0.2) Triglycerides Level 59mg/dL (0-150) Cholesterol Level 112mg/dL (0-200) LDL Cholesterol, Calculated 55mg/dL (0-100) VLDL Cholesterol, Calculated 12mg/dL (0-40) HDL Cholesterol 45mg/dL (40-60) Cholesterol/HDL Ratio 2.5 Brief Hospital Course 50 y.o male, homeless, admitted for CP r.o ACS,. DOes have hx [place] he claims yrs ago but no stents, cp midsternal, described as chest tightness, no diaphoresis, maybe SOA. He claims from anxiety, He used to take methadone 95 mgs a day and quit cold turkey a month ago bec he claims it was making him sick (unclear reasons0, BUt now tells me he requests xanax, oxycodone, klonopin and restoril,. EKg ok, labs ok, pt admitted for r/o ACS Echo being ordered. if neg then will go home, Pt actually not homeless, stays in a rental where they charge him $800 a month so he is in between places. Sister concerned about depression, Rx narcs provided,. Pt used to be on methadone Discharge Information Condition at Discharge: Improved, Stable Disposition/Orders: D/C to Home Scheduled Famotidine (Famotidine) 20 MG PO BID MARCUS MAYNARD MD Oct 17, 2016 12:19
[2016-10-17] MEDS: CLONAZEPAM 1 MG TABLET PO PRN (12:22)
[2016-10-17 14:49] VITALS: BP 97/60
--- NOTE | 2016-10-17 15:18 | CARD ---
APPROVED REPORT EXAM: Two-dimensional and M-mode echocardiogram with Doppler and color Doppler. Other Information Quality : Good INDICATION Chest Pain 2D DIMENSIONS RVDd2.5 (2.9-3.5cm)Left Atrium(2D)3.3 (1.6-4.0cm) IVSd0.8 (0.7-1.1cm)Aortic Root(2D)3.0 (2.0-3.7cm) LVDd5.4 (3.9-5.9cm)LVOT Diameter1.9 (1.8-2.4cm) PWd0.8 (0.7-1.1cm)LVDs3.2 (2.5-4.0cm) FS (%) 30.0 %SV99.2 ml LVEF(%)60.0 (>50%) Aortic Valve AoV Peak Joel.142.4cm/sAoV VTI24.0cm AO Peak GR.8.1mmHgLVOT VTI 23.36cm AO Mean GR.4mmHgAVA (VTI)2.80cm2 Mitral Valve MV E Vptzevxw84.1cm/sMV DECEL [id number] MV A Cklienei03.7cm/sE/A Ratio1.2 MV A [id number] TDI Lateral E' P. V15.69cm/sMedial E' P. V8.39cm/s E/Lateral E'5.0E/Medial E'9.4 Pulmonary Vein S1 Wbbnuyda75.5cm/sS2 Fsywbllt90.67cm/s D2 Pcpbyfjp73.7cm/sPVa [id number] LEFT VENTRICLE The left ventricle is normal size. There is normal left ventricular wall thickness. The left ventricu lar systolic function is normal. The Ejection Fraction is 55-60%. There is normal LV segmental wall m otion. RIGHT VENTRICLE The right ventricle is normal size. The right ventricular systolic function is normal. ATRIA The left atrium size is normal. The right atrium size is normal. The interatrial septum is intact wit h no evidence for an atrial septal defect or patent foramen ovale as noted on 2-D or Doppler imaging. AORTIC VALVE The aortic valve is calcified but opens well. Doppler and Color Flow revealed no significant aortic r egurgitation. There is no significant aortic valvular stenosis. MITRAL VALVE The mitral valve is normal in structure and function. There is no evidence of mitral valve prolapse. There is no mitral valve stenosis. Doppler and Color-flow revealed mild mitral regurgitation. TRICUSPID VALVE The tricuspid valve is normal in structure and function. Doppler and Color Flow revealed trace tricus pid regurgitation. There is no tricuspid valve stenosis. PULMONIC VALVE The pulmonary valve is normal in structure and function. Doppler and Color Flow revealed trace pulmon ic valvular regurgitation. There is no pulmonic valvular stenosis. GREAT VESSELS The aortic root is normal in size. The ascending aorta is not well seen. The IVC is normal in size an d collapses >50% with inspiration. PERICARDIAL EFFUSION There is no evidence of significant pericardial effusion. Critical Notification Critical Value: No <Conclusion> The left ventricular systolic function is normal. The Ejection Fraction is 55-60%. There is normal LV segmental wall motion. Mild mitral regurgitation. Trace tricuspid regurgitation. There is no evidence of significant pericardial effusion.
== END 2016-10-17 17:18 | disposition home or self-care (01) ==
LOC: ER 09:12 → 5 SOUTH 14:30
PROVIDERS: ADMIT Internal Medicine; ATTEND Internal Medicine
DX: R07.9 Chest pain, unspecified (principal); I25.2 Old myocardial infarction; Z59.0 Homelessness; F11.90 Opioid use, unspecified, uncomplicated; B19.20 Unspecified viral hepatitis C without hepatic coma; E87.6 Hypokalemia; F15.90 Other stimulant use, unspecified, uncomplicated; I10 Essential (primary) hypertension; J44.9 Chronic obstructive pulmonary disease, unspecified; J45.909 Unspecified asthma, uncomplicated; K21.9 Gastro-esophageal reflux disease without esophagitis; M25.70 Osteophyte, unspecified joint; Z90.49 Acquired absence of other specified parts of digestive tract
CPT/HCPCS: 36415; 71020; 80053; 80061; 81001; 82553; 83690; 83880; 84484; 85027; 93005; 93306; 94250; 94640; 96374; 99285; G0378; G0481; J2060; J7620; G0379

== ENCOUNTER → 2017-06-01 | Outpatient (CLI) | payer OTHER ==
[~2017-06-01] MED LIST changes: +ALPR1TAB2 PO; +CLON1TAB PO; +OXYC10SY PO; +TEMA7.5C2 PO
--- NOTE | 2017-06-01 15:15 | RAD ---
Lumbar spine, 2 views, 06/01/2017: History: Chronic arthritis and back pain The lumbar vertebral heights and intervertebral disc spaces are well preserved. There are moderate scattered marginal spurs, particularly at the L3-4 level. There are mild degenerative changes involving the facet joints in the lower lumbar spine. No fracture or dislocation is identified. The paraspinous soft tissues are unremarkable. IMPRESSION: 1. Mild to moderate scattered degenerative changes. 2. No acute abnormality is detected.
--- NOTE | 2017-06-01 15:16 | RAD ---
Left ankle, 2 views, 06/01/2017: History: Arthritis, ankle pain No fracture or dislocation is identified. The ankle joint space appears to be fairly well preserved. There is minimal spurring at the midfoot level. IMPRESSION: No acute left ankle abnormality is detected.
== END | disposition home or self-care (01) ==
LOC: RAD 10:29
PROVIDERS: ATTEND Surgery
DX: M47.896 Other spondylosis, lumbar region (principal); M25.572 Pain in left ankle and joints of left foot; G89.29 Other chronic pain
CPT/HCPCS: 72100; 73600